=== PATIENT | male | born 1960 | race African-American/Black ===

== ENCOUNTER 2019-11-01 14:04 | Outpatient (CLI) | payer OTHER ==
--- NOTE | 2019-11-01 15:17 | RAD ---
LUMBAR SPINE 3 VIEWS: HISTORY: Disability, lower back pain for years. FINDINGS: Mild levoscoliosis. Multilevel disk-osteophyte with disk space narrowing, particularly at L4-L5 and L5-S1 with generalized facet arthrosis and multilevel disk-osteophytosis. IMPRESSION: Mild levoscoliosis. Generalized spondylosis. POS: RRE
== END 2019-11-01 14:05 | disposition home or self-care (01) ==
LOC: BICRAD 14:04
PROVIDERS: ATTEND Internal Medicine
DX: Z02.71 Encounter for disability determination (principal); M47.816 Spondylosis without myelopathy or radiculopathy, lumbar region; M41.9 Scoliosis, unspecified
CPT/HCPCS: 72100